=== PATIENT | female | born 1990 | race Caucasian/White ===

== ENCOUNTER 2017-01-30 23:52 | Emergency (ER) | payer SELFPAY ==
--- NOTE | ~2017-01-30 | ER ---
PATIENT'S NAME: BRODIE TAYLOR [facility] AGE: 26 Y [address] ROOM: [place] [address] LOCATION: [facility] ADMIT DATE: 01/30/2017 ER/Outpatient Report DISCHARGE DATE: 01/31/2017 FAMILY PHYSICIAN: PHYSICIAN, NO ATTENDING PHYSICIAN: Leoncio Resendez Admission date and time documented in the medical record. I saw the patient at 0005 hours. CHIEF COMPLAINT: Chest tightness, chest pain, and shortness of breath. HISTORY OF PRESENT ILLNESS: The patient is a 26-year-old female, who about 2 hours prior to admission to the emergency room started having some problems coughing, then about an hour later started to have some chest tightness and pain with some shortness of breath. She does have a history of asthma as a child. She is on no medications at the present time, although does have home nebulizer unit without albuterol. Long history of heart problems. She had VSD, patent foramen ovale, and she does have valvular heart disease. 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 Pain is in the left anterior chest, nonradiating. Does have some lightheadedness and dizziness. Cold feeling, but no fever. Has had a common upper respiratory infection as late. No abdominal pain, nausea, vomiting, diarrhea, or urinary complaints. No joint or muscle swelling, redness, or pain. No skin eruptions or rash. No history of neuro changes, psych issues, or endocrine problems. HOME MEDICATIONS: None. ALLERGIES: PENICILLIN, SULFA, AND VANCOMYCIN. SOCIAL HISTORY: Nonsmoker and nondrinker. SIGNIFICANT PAST MEDICAL HISTORY: Asthma, valvular heart disease, ventricular septal defect, and patent foramen ovale. OPERATIONS: Heart surgery. REVIEW OF SYSTEMS: All systems reviewed by me are negative with the exception of those discussed PATIENT'S NAME: BRODIE TAYLOR [facility] AGE: 26 Y [address] ROOM: [place] [address] LOCATION: [facility] ADMIT DATE: 01/30/2017 ER/Outpatient Report DISCHARGE DATE: 01/31/2017 FAMILY PHYSICIAN: PHYSICIAN, NO ATTENDING PHYSICIAN: Leoncio Resendez in the history of the present illness. PHYSICAL EXAMINATION: VITAL SIGNS: Temperature 98.2 tympanic, pulse 94 and regular, respirations 18, blood pressure 156/89, and O2 saturation on room air is 96%. HEENT: Head: Normocephalic. Eyes, ears, nose, and throat clear. Mucous membranes moist. NECK: Negative. SPINE: Negative. LUNGS: Clear. Fairly good air flow. HEART: Regular. Murmur present, systolic. Pulses palpable. No chest wall or ribcage pain to palpation. ABDOMEN: Soft, nondistended, and nontender. Good bowel tones. No organomegaly or abnormal mass palpable. No CVA tenderness. PELVIS: Stable. EXTREMITIES: No peripheral edema, cyanosis, or deformity. NEUROVASCULAR: Intact. SKIN: Clear. No skin eruptions or rash. LABORATORY DATA AND X-RAYS: Chest x-ray showed no acute infiltrate or changes. We will review x-ray with the radiologist. EKG showed right bundle-branch block, sinus rhythm. No acute ST elevation, ischemic change, or arrhythmia. D-dimer was 0.29. CMS was normal. Magnesium was 2.0. CPK was 54. Point of care cardiac enzymes were normal. White count 6300, 63 segs, 25 lymphs, 9 monos, 2 eos, 1 baso, hemoglobin is 13.8, hematocrit 40.5, and platelet count is 198,000. PTT is 28, pro-time is 10.7, and INR 1.02. CRP was less than 0.29. Thyroid tests were normal. ProBNP was 143. Sedimentation rate was 8. We did give the patient DuoNeb with improvement. IMPRESSION: Chest pain and tightness with lightheadedness and shortness of breath. No evidence of cardiac etiology for this, it most likely is bronchial with bronchospasm and upper respiratory infection. The patient does have a history of asthma. PLAN: The patient was given a DuoNeb respiratory treatment in the emergency room. Discharged home. Observation. Activity as tolerated. Fluids and diet as tolerated. Albuterol oral inhaler with AeroChamber 2 puffs 30 seconds apart 4 times a day and as needed. Also gave her some albuterol unit dose to be used in her nebulizer at home. Medrol Dosepak take as directed. Follow up with personal physician as needed. Discussion ensued with the patient concerning PATIENT'S NAME: BRODIE TAYLOR [facility] AGE: 26 Y [address] ROOM: [place] [address] LOCATION: [facility] ADMIT DATE: 01/30/2017 ER/Outpatient Report DISCHARGE DATE: 01/31/2017 FAMILY PHYSICIAN: AMANDA ESTRADA ATTENDING PHYSICIAN: Leoncio Resendez my findings and recommendations, she understands. MD KENIA NICHOLS/modl /[id number] d: 01/31/17217 t: 01/31/17 1815, OUTPATIENT REPORT
[2017-01-31 00:23] LABS: BASOPHIL % 0.6 %; EOSINOPHIL # 0.1 K/uL (0.0-0.5); EOSINOPHIL % 1.6 %; HEMATOCRIT 40.5 % (33.0-46.0); HEMOGLOBIN 13.8 g/dL (11.0-15.0); IMMATURE GRANULOCYTE # 0.1 K/uL (0.0-0.3); IMMATURE GRANULOCYTE % 0.8 %; LYMPHOCYTE # 1.6 K/uL (0.8-4.0); MCH 28.7 pg (27.0-34.0); MCHC 34.1 gm/dL (32.0-36.5); MCV 84.2 fl (83.0-98.0); MONOCYTE # 0.6 K/uL (0.0-1.0); MONOCYTE % 8.7 %; MPV 11.3 fl (9.4-12.4); NEUTROPHIL % 63.3 %; NRBC % 0 /100WBC (0-0.00); PLATELET COUNT 190 K/uL (150-450); RBC 4.81 M/uL (3.50-5.00); RDW-CV 12.4 % (11.9-14.6); WBC 6.3 K/uL (4.0-11.0)
[2017-01-31 00:33] LABS: INR - (THERAPEUTIC) 1.02 (0.92-1.07); PROTIME 10.7 SECONDS (9.8-11.4); PTT 28 SECONDS (25-32)
[2017-01-31 00:42] LABS: ALK PHOS 61 IU/L (33-138); ALT 16 IU/L (12-78); ANION GAP 11.8 (10.0-19.0); AST 9 IU/L (10-40); BLOOD UREA NITROGEN 10 mg/dL (6-24); CALCIUM 8.8 mg/dL (8.5-10.5); CHLORIDE 109 mMol/L (96-110); CO2 24 mMol/L (22-32); CPK 54 IU/L (21-215); CREATININE 0.8 mg/dL (0.5-1.1); ESTIMATED GFR (MDRD EQUATION) > 60; POTASSIUM 3.8 mMol/L (3.7-5.1); SODIUM 141 mMol/L (135-145); TOTAL BILIRUBIN 0.3 mg/dL (0.0-1.5); TOTAL PROTEIN 7.3 g/dL (6.0-8.4)
== END 2017-01-31 01:40 | disposition disaster alternative care site (69) ==
LOC: GMED 23:52
PROVIDERS: Emergency Medicine
DX: R07.89 Other chest pain (principal); R42 Dizziness and giddiness; J45.909 Unspecified asthma, uncomplicated; Z88.0 Allergy status to penicillin; Z88.2 Allergy status to sulfonamides; Z88.1 Allergy status to other antibiotic agents

== ENCOUNTER 2017-05-04 22:49 | Emergency (ER) | payer BC, OTHER ==
--- NOTE | ~2017-05-04 | ER ---
PATIENT'S NAME: BRODIE CHAPMAN [facility] AGE: 26 Y [address] ROOM: [place] [address] LOCATION: [facility] ADMIT DATE: 05/04/2017 ER/Outpatient Report DISCHARGE DATE: 05/05/2017 FAMILY PHYSICIAN: PHYSICIAN, NO ATTENDING PHYSICIAN: Toyin Mcgrath Admission date and time documented in the medical record. I saw the patient at 2300 hours. CHIEF COMPLAINT: Dizziness, lightheadedness, vertigo, right visual blurring. HISTORY OF PRESENT ILLNESS: This patient is a 26-year-old female, who has had some lightheadedness, dizziness, plus vertigo off and on for about 2 months. Increased problems over the past 24 hours. No postural hypotension by exam. The patient does have a history of valvular heart disease with aortic valve replacement. Cardiac echo done today was normal. Cardiac workup last night was normal. She has some pain behind her right eye with some blurring of vision in the right eye accompanied the dizziness, lightheadedness, and vertigo. No nausea, vomiting, diarrhea, or urinary complaints. No fall or trauma. No recent colds, coughs, flus, fever, chills, or sweats. No chest pain, shortness of breath. No joint or muscle redness or pain. No skin eruptions or rash. She has had a concussion by history. No seizure history, CVA, TIA history. She does have depression and anxiety but no psychosis. No endocrine problems. HOME MEDICATIONS: None. ALLERGIES: SULFA, PENICILLIN, VANCOMYCIN. SOCIAL HISTORY: Nonsmoker, occasional intake of alcohol. SIGNIFICANT PAST MEDICAL HISTORY: Valvular heart disease, ventral septal defect, asthma, patent foramen ovale. OPERATIONS: VSD repair, aortic valve replacement. REVIEW OF SYSTEMS: All systems reviewed by me are negative with the exception of those discussed in the history of present illness. PATIENT'S NAME: BRODIE CHAPMAN [facility] AGE: 26 Y [address] ROOM: [place] [address] LOCATION: [facility] ADMIT DATE: 05/04/2017 ER/Outpatient Report DISCHARGE DATE: 05/05/2017 FAMILY PHYSICIAN: PHYSICIAN, NO ATTENDING PHYSICIAN: Toyin Mcgrath PHYSICAL EXAMINATION: VITAL SIGNS: Temperature 97.2 tympanic, pulse 93, respirations 16, blood pressure 125/80, O2 saturation on room air is 97%. HEAD: Normocephalic. EYES: Extraocular muscles intact. PERRL. Fundi benign. EARS: Clear TMs bilaterally. NOSE AND THROAT: Clear. Mucous membranes moist. NECK: No nuchal rigidity. No thyromegaly or cervical adenopathy. No carotid bruits. LUNGS: Clear. HEART: Regular. Pulses are palpable. ABDOMEN: Soft, nontender. Good bowel tones. No organomegaly or abnormal mass palpable. EXTREMITIES: No peripheral edema, cyanosis, clubbing, or deformity. Moves all 4 extremities. NEURO: Cranial nerves intact. No lateralizing sign. The patient is awake, cooperative. Motor and sensory intact. Does have some mild horizontal nystagmus. SKIN: Clear. LABORATORY DATA AND X-RAYS: CT scan of the head showed no intracranial bleed, midline shift, mass effect, or skull fracture. White count is 5300, 57 segs, 31 lymphs, 9 monos, 2 eos, 1 baso, hemoglobin is 14 with hematocrit 39.3, platelet count 186,000, sedimentation rate is normal at 10. PTT was 28, pro-time was 10.7, INR 1.02. CMS was normal. CPK was 54. CRP was 0.31. IMPRESSION: Lightheaded, dizziness with vertigo. Does have some mild horizontal nystagmus. Does have some blurriness of vision in the left eye, etiology uncertain. PLAN: The patient discharged home. Observation. Activity as tolerated. Fluids and diet as tolerated. Rest. Valium 2 mg 3 times a day, #21. Antivert 25 mg 4 times a day, #28. Follow up with personal physician in 5 to 7 days or sooner if needed. Discussion ensued with the patient concerning my findings and recommendations, she understands. TOYIN MCGRATH MD SDS/modl PATIENT'S NAME: BRODIE CHAPMAN [facility] AGE: 26 Y [address] ROOM: [place] [address] LOCATION: ED ADMIT DATE: 05/04/2017 ER/Outpatient Report DISCHARGE DATE: 05/05/2017 FAMILY PHYSICIAN: AMANDA ESTRADA ATTENDING PHYSICIAN: Toyin Mcgrath /[id number] d: 05/05/17 0219 t: 05/05/17 0430, OUTPATIENT REPORT
[2017-05-04 23:31] LABS: BASOPHIL % 0.6 %; EOSINOPHIL # 0.1 K/uL (0.0-0.5); EOSINOPHIL % 2.1 %; HEMATOCRIT 39.3 % (33.0-46.0); IMMATURE GRANULOCYTE % 0.8 %; LYMPHOCYTE # 1.6 K/uL (0.8-4.0); LYMPHOCYTE % 30.9 %; MCH 29.7 pg (27.0-34.0); MCHC 35.6 gm/dL (32.0-36.5); MCV 83.4 fl (83.0-98.0); MONOCYTE # 0.5 K/uL (0.0-1.0); MONOCYTE % 8.7 %; MPV 11.4 fl (9.4-12.4); NEUTROPHIL % 56.9 %; NRBC % 0 /100WBC (0-0.00); PLATELET COUNT 186 K/uL (150-450); RBC 4.71 M/uL (3.50-5.00); RDW-CV 11.9 % (11.9-14.6); WBC 5.3 K/uL (4.0-11.0)
[2017-05-04 23:40] LABS: INR - (THERAPEUTIC) 1.02 (0.92-1.07); PROTIME 10.7 SECONDS (9.8-11.4); PTT 28 SECONDS (25-32)
[2017-05-04 23:48] LABS: ALBUMIN 3.8 gm/dL (3.5-5.0); ALK PHOS 64 IU/L (33-138); ALT 20 IU/L (12-78); ANION GAP 9.9 (10.0-19.0); AST 12 IU/L (10-40); BLOOD UREA NITROGEN 11 mg/dL (6-24); CALCIUM 8.9 mg/dL (8.5-10.5); CHLORIDE 108 mMol/L (96-110); CO2 24 mMol/L (22-32); CPK 54 IU/L (21-215); CREATININE 0.7 mg/dL (0.5-1.1); ESTIMATED GFR (MDRD EQUATION) > 60; POTASSIUM 3.9 mMol/L (3.7-5.1); SODIUM 138 mMol/L (135-145); TOTAL BILIRUBIN 0.3 mg/dL (0.0-1.5); TOTAL PROTEIN 7.1 g/dL (6.0-8.4)
== END 2017-05-05 01:00 | disposition disaster alternative care site (69) ==
LOC: GMED 22:49
PROVIDERS: Emergency Medicine
DX: R42 Dizziness and giddiness (principal); H55.00 Unspecified nystagmus; H53.8 Other visual disturbances; J45.909 Unspecified asthma, uncomplicated; Z88.0 Allergy status to penicillin; Z88.2 Allergy status to sulfonamides; Z88.1 Allergy status to other antibiotic agents; Z95.2 Presence of prosthetic heart valve; Z98.890 Other specified postprocedural states

== ENCOUNTER → 2017-05-04 | Outpatient (CLI) | payer OTHER ==
--- NOTE | ~2017-05-04 | ECHO ---
Transthoracic Echocardiography Report (TTE) Demographics Patient Name BRODIE CHAPMAN Date of Study 05/04/2017 Patient Number [id number] Visit Number [id number] Date of 1990 Room Number Gender Female Number Age 26 year(s) Referring Inocencia Estrada Media Marketing Specialist Jason MOORET, Physician Ino HORVATH RDCS Physician Interpreting [facility] Aide Physician Natalie Mckinnon MD Supervising Ordering [facility] MD/MLP Physician Natalie Mckinnon MD Nurse Stress Transition Mgr Rn Conclusions Contractility Score Summary Normal Left Ventricular contractility was noted. Summary The estimated left ventricular ejection fraction is 60-65%. Normal left ventricle size and function. Diastolic assessment reveals normal relaxation. Patient with known VSD repair, appears to be no residual VSD. The prosthetic aortic valve appears to function normally. There is mild aortic regurgitation. The aortic root appears mildly dilated. The maximum diameter measures 3.7 cm. The ascending aorta appears mildly dilated. The maximum diameter measures 3.2 cm. Procedure Type of Study TTE procedure:2D Echocardiogram. Procedure Date Date: 05/04/2017 Start: 12:24 PM Study Location: Inpatient Portable Technical Quality: Adequate visualization Indications:Dizziness. Additional Indications:Prosthetic aortic valve Appropriate Use Criteria: 8 Patient Status: Routine Rhythm: NSR HR: 81 bpm BP: 124/76 mmHg M-Mode/2D Measurements LV Diastolic Dimension: 4.2 cm LV Systolic Dimension: 2.26 cm LV Septum Diastolic: 1.04 cm LV PW Diastolic: 1.09 cm AO Root Dimension: 3.1 cm Cardiac Output: 6.78 l/min AV Cusp Separation: 2.6 cm RV Diastolic Dimension: 2.24 cm LA volume: 35 ml LVOT: 2.8 cm RV Base: 3.28 cm LVOT VTI: 13.6 cm RV Mid: 2.72 cm LV Stroke volume: 83.7 ml TAPSE: 1.88 cm TDI-S': 8.99 cm/s Doppler Measurements AV Peak Velocity: 1.05 m/s MV Peak E-Wave: 1.34 m/s AV Peak Gradient: 4.41 mmHg MV Peak A-Wave: 0.43 m/s AV Mean Gradient: 2 mmHg MV E/A Ratio: 3.15 LVOT Peak Velocity: 0.59 m/s MV P1/2t: 51 msec PV Peak Velocity: 1.96 m/s E' Septal Velocity: 0.08 m/s PV Peak Gradient: 15.37 mmHg E' Lateral Velocity: 0.13 m/s A' Septal Velocity: 0.07 m/s A' Lateral Velocity: 0.1 m/s Findings Left Ventricle Normal left ventricle size and function. Diastolic assessment reveals normal relaxation. Patient with known VSD repair, appears to be no residual VSD. Right Ventricle Normal right ventricle structure and function. Left Atrium Normal left atrial size. There is no evidence of patent foramen ovale or atrial septal defect by color Doppler. Right Atrium The right atrium is mildly dilated. IVC measures 1.61 cm with inspiratory collapse. Mitral Valve Normal mitral valve structure and function. Aortic Valve The prosthetic aortic valve appears to function normally. There is mild aortic regurgitation. Tricuspid Valve Normal tricuspid valve structure and function. Pulmonic Valve Normal pulmonic valve structure and function. Pericardial Effusion No evidence of pericardial effusion. Miscellaneous The aortic root appears mildly dilated. The maximum diameter measures 3.7 cm. The ascending aorta appears mildly dilated. The maximum diameter measures 3.2 cm. Pleural Effusion No evidence of pleural effusion. Contractility Score LV regional wall motion:(0-Non visualized 1-Normal 2-Hypokinesis 3-Akinesis 4-Dyskinesis 5-Aneurysm) Signature dtt: Charissa Pro dtd: 05/04/17 1224 Physician Self Edit
== END | disposition disaster alternative care site (69) ==
LOC: GCAR 12:00
DX: I35.0 Nonrheumatic aortic (valve) stenosis (principal); I35.1 Nonrheumatic aortic (valve) insufficiency; I77.819 Aortic ectasia, unspecified site; Z95.2 Presence of prosthetic heart valve

== ENCOUNTER → 2017-06-25 | Outpatient (CLI) | payer OTHER ==
[2017-06-25 13:49] LABS: BASOPHIL # 0.1 K/uL (0.0-0.2); EOSINOPHIL # 0.1 K/uL (0.0-0.5); EOSINOPHIL % 2.4 %; HEMATOCRIT 41.1 % (33.0-46.0); HEMOGLOBIN 14.6 g/dL (11.0-15.0); IMMATURE GRANULOCYTE # 0.1 K/uL (0.0-0.3); LYMPHOCYTE # 1.4 K/uL (0.8-4.0); LYMPHOCYTE % 27.1 %; MCH 29.7 pg (27.0-34.0); MCHC 35.5 gm/dL (32.0-36.5); MCV 83.5 fl (83.0-98.0); MONOCYTE # 0.5 K/uL (0.0-1.0); MPV 11.5 fl (9.4-12.4); NEUTROPHIL % 59.5 %; NRBC % 0 /100WBC (0-0.00); PLATELET COUNT 213 K/uL (150-450); RBC 4.92 M/uL (3.50-5.00); RDW-CV 11.9 % (11.9-14.6)
[2017-06-25 14:25] LABS: ALBUMIN 3.8 gm/dL (3.5-5.0); ALK PHOS 57 IU/L (33-138); ALT 27 IU/L (12-78); BLOOD UREA NITROGEN 13 mg/dL (6-24); CALCIUM 9.2 mg/dL (8.5-10.5); CHLORIDE 110 mMol/L (96-110); CO2 24 mMol/L (22-32); CREATININE 0.8 mg/dL (0.5-1.1); SODIUM 139 mMol/L (135-145); TOTAL PROTEIN 7.5 g/dL (6.0-8.4)
[2017-06-25 14:34] LABS: ANION GAP 9.7 (10.0-19.0); AST 27 IU/L (10-40); POTASSIUM 4.7 mMol/L (3.7-5.1); TOTAL BILIRUBIN 0.5 mg/dL (0.0-1.5)
== END | disposition disaster alternative care site (69) ==
LOC: GLAB 06-23 11:00
PROVIDERS: Pediatrics Pediatric Cardiology
DX: Q25.5 Atresia of pulmonary artery (principal); R00.0 Tachycardia, unspecified